=== PATIENT | female | born 1960 | race Hispanic/Latino ===

== ENCOUNTER → 2025-03-18 | Outpatient (CLI) | payer BC ==
--- NOTE | 2025-03-18 23:05 | HMCIMG ---
EXAM: Whole body bone scan. 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 REFERENCE EXAMINATION: None TECHNIQUE: 25 mCi of technetium 99m MDP intravenously. Delayed images were acquired at approximately 3 hours from tracer administration. FINDINGS: The radiopharmaceutical is seen in the expected bio distribution. No abnormal uptake noted in the entire skeleton. IMPRESSION: Normal Bone scan with no obvious evidence of osteoblastic skeletal metastases. /[place]
== END | disposition home or self-care (01) ==
LOC: RAH 11:36
PROVIDERS: ATTEND Internal Medicine
DX: M89.58 Osteolysis, other site (principal)
CPT/HCPCS: 78306; A9503

== ENCOUNTER → 2025-03-31 | Outpatient (CLI) | payer BC ==
[~2025-03-31] MED LIST: GADOTERATE MEGLUMINE 10 MMOL/20 ML VIAL IV ONE
--- NOTE | 2025-03-31 22:52 | HMCIMG ---
EXAMINATION: MRI Thoracic Spine With and Without Contrast CLINICAL HISTORY: Osteolysis, other site. TECHNIQUE: Multiplanar, multisequence MRI of the thoracic spine was performed with and without intravenous contrast. COMPARISON: Prior NM bone scan dated March 18, 2025. FINDINGS: Vertebral Seth with dies and Endplates: Anterior and posterior marginal osteophytes are present at multiple thoracic levels. Modic type II endplate changes are noted. A Schmorls node is present at the inferior endplate of T10. Mild edema is present at the T10T11 disc and adjacent vertebral endplates with heterogeneous post-contrast enhancement. Intervertebral Discs: Diffuse disc desiccation is present at all levels with preserved disc height. No significant disc herniation is noted. Spinal Canal and Neural Foramina: No central canal stenosis, neural foraminal narrowing, or nerve root impingement is identified. Facet and Costovertebral Joints: Multilevel costotransverse and costovertebral arthrosis is present. Soft Tissues: There is a prevertebral soft tissue component anteriorly measuring up to 4 mm in thickness and extending craniocaudally approximately 2.5 cm, showing mild enhancement. No epidural soft tissue or dural enhancement is identified. Other Findings: No compression fractures are seen. IMPRESSION: 1.Mild edema at the T10T11 disc and adjacent vertebral endplates with anterior prevertebral soft tissue thickening, showing post-contrast enhancement, suggestive of early spondylodiscitis; advanced degenerative changes remain a differential consideration. Recommend Ga-67 scintigraphy and short-interval follow-up MRI at 46 weeks to exclude early spondylodiscitis. No definite evidence to suggest neoplastic disease. 2.Multilevel thoracic spondylosis with anterior and posterior marginal osteophytes, Modic type II endplate changes, and diffuse disc desiccation. 3.Multilevel costotransverse and costovertebral arthrosis 4.No central canal stenosis, neural foraminal narrowing, or nerve root impingement. 5.The T10-T11 level disc and vertebral abnormalities are new since the prior nanometers bone scan dated March 18, 2025. /[place]
== END | disposition home or self-care (01) ==
LOC: RAH 12:36
PROVIDERS: ATTEND Internal Medicine
DX: M47.814 Spondylosis without myelopathy or radiculopathy, thoracic region (principal); M89.58 Osteolysis, other site; M25.78 Osteophyte, vertebrae; G95.19 Other vascular myelopathies; M51.44 Schmorl's nodes, thoracic region
CPT/HCPCS: 72157; A9575